=== PATIENT | female | born 1975 | race African-American/Black ===

== ENCOUNTER 2024-11-29 09:30 | Outpatient (CLI) | payer OTHER, SELFPAY ==
--- OUTSIDE RECORDS SUMMARY | 2024-11-29 09:45 | XMS_ITS | Clinical Summary ---
Author Organization [facility] Address [address] [place] [address] Care Team Providers Care Pediatric Occupational Therapist Name Role Phone Gomez Kaufman MD Primary Care Provider [phone] Source Comments [facility],non-owned Affiliates and Associated Physician Practices is amultiple site organization consisting of ambulatory clinics and hospital sitesin [place], [place], [place] and [place]. This disclosure is being madepursuant to the Care Everywhere program and may not contain all information available regarding this patient. Last updated 17.[facility] Allergies No known active allergies Medications * Be aware that medications may not be up to date on this document. Alwaysverify current medications with the patient. amLODIPine (NORVASC) 10 MG tablet Take 10 mg by mouth once daily. Active HYDROCHLOROTHIAZ KENNETH PO Take 5 mg by mouth. Active albuterol HFA (PROVENTIL;YAMILE CONNOR;PROAIR) 108 (90 BASE) MCG/ACT inhaler Inhale 2 Puffs by mouth every 6 hours as needed. Active permethrin (ELIMITE) 5 % cream Apply to entire body once and a second time 1 week later. 60 g 0 09/24/2013 Active Social History Tobacco Use Types Packs/Day Years Used Date Smoking Tobacco: Never Alcohol Use Standard Drinks/Week Comments Yes 0 (1 standard drink = 0.6 oz pur e alcohol) occasional Comments Unknown Sex and Gender Information Value Date Recorded Sex Assigned at Not on file Legal Sex Female 6:28 AM DIRECTOR OF MEDICAL EDUCATION Gender Identity Not on file Sexual Orientation Not on file Last Filed Vital Signs Vital Sign Reading Time Taken Comments Blood Pressure 123/84 08/13/2014 4:52 PM CDT Pulse 90 08/13/2014 4:52 PM CDT Temperature 36.6 C (97.8 F) 08/13/2014 4:52 PM CDT Respiratory Rate 16 08/13/2014 4:52 PM CDT Oxygen Saturation 96% 08/13/2014 4:52 PM CDT Inhaled Oxygen Concentration - - Weight 131.5 kg (290 lb) 08/13/2014 4:52 PM CDT Height 160 cm (5' 3) 10/21/2013 10:12 AM CDT Body Mass Index 51.37 10/21/2013 10:12 AM CDT Plan of Treatment Health Maintenance Due Date Last Done Comments COLOGUARD (AGES 45-75) - COL ON CA SCREENING 1973 COLON MONITORING 1973 COLONOSCOPY - COLON CA SCREENING 1973 CT COLONOGRAPHY - COLON CA SCREENING 1973 Colorectal Cancer Screening 1973 FIT - COLON CA SCREENING 1973 FLEX SIG - COLON CA SCREENING 1973 LIPID TESTING 1973 MAMMOGRAM 1973 HIV SCREENING 1988 HEPATITIS C SCREENING 06/22/1991 DTAP/TDAP/TD VACCINES (1 - Tdap) 1992 HEPATITIS B VACCINE (1 of 3 - 19+ 3-dose series) 1992 PNEUMOCOCCAL VACCINE 50+ (1 of 1 - PCV) 06/27/2023 ZOSTER VACCINE (1 of 2) 06/27/2023 DEPRESSION SCREENING 02/07/2024 COVID-19 VACCINE (1 - 2023-2 5 season) 2024 INFLUENZA VACCINE (#1) 2024 HIB VACCINE Aged Out No longer eligi ble based on patient's age to complete this topic HPV VACCINE Aged Out No longer eligi ble based on patient's age to complete this topic MENINGOCOCCAL (Group B) VACC INE SHARED DECISION-MAKING Aged Out No longer eligibl e based on patient's age to complete this topic MENINGOCOCCAL GROUPS A/C/Y/W VACCINE Aged Out No longer eligible b ased on patient's age to complete this topic Insurance MEDICAID [facility] Care Teams Pediatric Occupational Therapist Relationship Specialty Start Date End Date Gomez Kaufman MD PCP - General Internal Medicine 08/23/13
--- OUTSIDE RECORDS SUMMARY | 2024-11-29 09:45 | XMS_ITS | Clinical Summary ---
Author Organization [facility] Address [address] [place] [address] Care Team Providers Care Supervisor Spring Up Name Role Phone Gomez Kaufman MD Primary Care Provider [phone] Allergies No known active allergies Medications ketorolac (TORADOL) 10 mg tablet Take 1 tablet (10 mg total) by mouth every 6 (six) hours as needed for pain 20 tablet 02/02/2024 Active Encounters Date Type Department Care Team Description 11/18/2024 Immunization [facility] Medicine Occupational Health [facility] Advanced Medicine 5th [address] [place] [address] Katelynn Gonzalez RN 10/29/2024 12:35 PM CDT Lab [facility] [address] [place] [address] [place] [address] from Last 3 Months Immunizations Immunization Administration Dates Next Due Influenza, Trivalent, Cell C ulture-based MDCK, Preservative Free, Antibiotic Free, Intramuscular 11/18/2024 Social History Tobacco Use Types Packs/Day Years Used Date Smoking Tobacco: Never Assessed Personal Safety Answer Date Recorded Have you ever been in or are you currently in a harmful physical or emotional relationship or is someone making you feel afraid or unsafe? Denies 02/02/2024 Comments No Sex and Gender Information Value Date Recorded Sex Assigned at Not on file Legal Sex Female 6:48 PM MAGAZINE HAND Gender Identity Not on file Sexual Orientation Not on file Last Filed Vital Signs Vital Sign Reading Time Taken Comments Blood Pressure 130/78 02/02/2024 9:00 PM MAGAZINE HAND Pulse 70 02/02/2024 9:00 PM MAGAZINE HAND Temperature 37 C (98.6 F) 02/02/2024 3:35 PM MAGAZINE HAND Respiratory Rate 20 02/02/2024 9:00 PM MAGAZINE HAND Oxygen Saturation 93% 02/02/2024 9:00 PM MAGAZINE HAND Inhaled Oxygen Concentration - - Weight 162.8 kg (358 lb 14.5 oz) 02/02/2024 3:35 PM MAGAZINE HAND Height 160 cm (5' 3) 02/02/2024 3:35 PM MAGAZINE HAND Body Mass Index 63.58 02/02/2024 3:35 PM MAGAZINE HAND Plan of Treatment Health Maintenance Due Date Last Done Comments Cervical Cancer Screening 1973 Colon Cancer Screening-Colonoscopy 1973 Depression Screening 1973 Hepatitis C Screening 1973 DTaP/Tdap/Td Vaccine (6 - Tdap) 09/23/1989 09/22/1989, 06/01/1979, 04/10/1975, Additional history exists Hepatitis B Screening 06/27/1991 Regular Well Visit/Exam 18-64 06/27/1991 Zoster Vaccine (1 of 2) 06/27/2023 Breast Cancer Screening-Mammogram 08/04/2023 08/03/2022 Influenza Vaccine Completed 11/18/2024, , 12/27/2021 Pneumococcal vaccine <65 Aged Out No longer eligible based on patient's age to complete this topic Procedures Procedure Name Priority Date/Time Associated Diagnosis Comments SCREENING MAMMOGRAM BILATERAL W LANRE Schedule Routine, Read Routine (OP Routine) 08/03/2022 1:41 PM CDT Screening mammogram, encounter for from Last 3 Months or Most Recently Relevant to Health Maintenance Results * Screening Mammogram Bilateral W Lanre (08/03/2022 1:41 PM CDT) Anatomical Region Laterality Modality Breast Bilateral Mammography Addenda Addendum by Celestina Wright MD on 08/16/2022 4:13 PM CDT ADDENDED REPORT 08/16/2022 at 16:13:38 Addendum: Impression: Finding 1: Mass in the left breast requires additional evaluation. An ultrasound exam is recommended at this time. Finding 2: Mass in the right breast requires additional evaluation. Diagnostic mammogram and possible ultrasound of the right breast are recommended at this time. OVERALL FINAL ASSESSMENT: BI-RADS CATEGORY 0: Incomplete: Need additional imaging evaluation. THIS REPORT HAS BEEN ADDENDED Narrative 08/12/2022 5:28 PM CDT ORIGINAL REPORT Mammogram Technique: Bilateral Digital Breast Tomosynthesis, Bilateral C-view 2D Screening mammogram. Views obtained: bilateral craniocaudal and bilateral mediolateral oblique. Computer Aided Detection was performed. Mammogram Findings: No prior imaging studies are available for comparison. There are scattered areas of fibroglandular density. Finding 1: There is an oval mass measuring 27 millimeters in the middle upper outer quadrant of the left breast. Finding 2: There is an oval mass measuring 8 millimeters in the posterior outer central to slightly upper outer right breast. Impression: Finding 1: Mass in the left breast requires additional evaluation. COMPARISON TO PRIOR FILMS is recommended. Finding 2: Mass in the right breast requires additional evaluation. COMPARISON TO PRIOR FILMS is recommended. OVERALL FINAL ASSESSMENT: BI-RADS CATEGORY 0: Incomplete: Need Additional Imaging Evaluation - Comparison with Prior Studies Procedure Note Celestina Wright MD - 08/16/2022 ORIGINAL REPORT Mammogram Technique: Bilateral Digital Breast Tomosynthesis, Bilateral C-view 2D Screening mammogram. Views obtained: bilateral craniocaudal and bilateral mediolateral oblique. Computer Aided Detection was performed. Mammogram Findings: No prior imaging studies are available for comparison. There are scattered areas of fibroglandular density. Finding 1: There is an oval mass measuring 27 millimeters in the middle upper outer quadrant of the left breast. Finding 2: There is an oval mass measuring 8 millimeters in the posterior outer central to slightly upper outer right breast. Impression: Finding 1: Mass in the left breast requires additional evaluation. COMPARISON TO PRIOR FILMS is recommended. Finding 2: Mass in the right breast requires additional evaluation. COMPARISON TO PRIOR FILMS is recommended. OVERALL FINAL ASSESSMENT: BI-RADS CATEGORY 0: Incomplete: Need Additional Imaging Evaluation -Comparison with Prior Studies us Self Screening Mammogram IMG MAMMO PROCEDURES Ed ited Result - Final from Last 3 Months or Most Recently Relevant to Health Maintenance Insurance [facility] Member Subscriber Plan / Payer ( fective 2024-Present) Name:Darrell Colon Relation to Subscriber:Self Name:MikeRaniDarrell valdez Payer ID:[id number] (NAIC) Type:[facility] HMO/PPO Address: [place] [phone] Care Teams Supervisor Spring Up Relationship Specialty Start Date End Date Gomez Kaufman MD PCP - General 10/16/18
--- OUTSIDE RECORDS SUMMARY | 2024-11-29 09:45 | XMS_ITS | Clinical Summary ---
Author Organization [facility] Care Team Providers Care Direct Support Professional Name Role Phone Unavailable Primary Care Provider Unavailabl e Social History Tobacco Use Types Packs/Day Years Used Date Smoking Tobacco: Never Assessed Comments Unknown Sex and Gender Information Value Date Recorded Sex Assigned at Not on file Legal Sex Female 8:18 AM CDT Gender Identity Not on file Sexual Orientation Not on file Plan of Treatment Health Maintenance Due Date Last Done Comments Hepatitis C Virus (HCV) Screening 1973 TdaP Immunization 1973 Hepatitis B Immunization (1 of 3 - 19+ 3-dose series) 1992 Pap Smear 1994 Cervical Cancer Screening (CCS) 06/27/2003 HPV/Cotest 06/27/2003 Cologuard 2018 Colonoscopy 2018 Colorectal Cancer Screening 2018 Immunochemical Fecal Occult Blood 2018 Pneumococcal Immunization (50+ years) (1 of 1 - PCV) 06/27/2023 Zoster Immunization (1 of 2) 06/27/2023 Influenza Immunization (#1) 2024 SARS-COV-2 Immunization ( season) 2024 Respiratory Syncytial Virus (RSV) Immunization (Adult) (1 - 1-dose 75+ series) 2048 DTaP/Tdap/Td Immunization Discontinued 1989, 06/01/1979, 04/10/1975, Additional history exists Human Papillomavirus (HPV) Immunization Aged Out No longer eligible based on patient's age to complete this topic Meningococcal Immunization (ACWY) Aged Out No longer eligible based on patient's age to complete this topic Rotavirus Immunization Aged Out No lo nger eligible based on patient's age to complete this topic
--- NOTE | 2024-12-13 12:54 | P.SLEEP_ITS ---
Sleep Study Date of Study: 11/29/24 Ordering Provider: William Szymanski, Interpreting Physician: Abby Quigley MD Sleep Study Type: Polysomnogram Height: 1.6 m Weight: 158.757 kg Body Mass Index: 61.9 Neck Circumference (inches): 16 [place]: 11 Reason for Sleep Study Hypersomnolence, witnessed apneas Sleep History Darrell Colon is a 49-year-old woman who dozes off during the day. She occasionally wakes at night with heartburn, belching or coughing.??She occasionally snores, and frequently snores loudly enough that others complain. She frequently has trouble sleeping when she has a cold. She rarely wakes up gasping for breath during the night. She rarely has breathing problems at night reported to her by others, however she has been told that she stops breathing at night. She rarely sweats excessively at night. She rarely notices her heart pounding or beating irregularly during the night. She frequently falls asleep during the day. She frequently falls asleep involuntarily, never falls asleep while driving. She rarely experiences loss of muscle tone with strong emotion. She rarely feels paralyzed on waking or falling asleep. She occasionally experiences vivid dreams upon waking or falling asleep. She rarely feels afraid of going to sleep. She rarely has nightmares. She occasionally recalls her dreams. She occasionally has thoughts racing through her mind. She occasionally feels sad or depressed. She frequently feels anxiety. She rarely notices parts of her body jerk. She rarely kicks during the night. She frequently feels crawling or aching feelings in her legs. She rarely feels leg pain at night. She never has morning jaw pain, never grinds her teeth at night. she rarely is awakened by pain during the night. She frequently wakes up feeling stiff in the morning, frequently wakes feeling sore or achy in the morning. She frequently awakens with pain in her neck, spine, or joints. Normal bedtime is 9:00 p.m., taking a long time to fall asleep, typically waking 3 times during the night for about an hour. While awake, she goes to the bathroom then watches television. Her normal wake time is 5:00 a.m.. On weekends, bedtime is also 9:00 p.m. however her wake time is 11:00 a.m. She reports getting an average of 5 hours of sleep most nights. she takes naps in the afternoon or evening however short nap lasting 10-15 minutes is not refreshi ng. She is usually drowsy on waking. She feels better in the afternoon compared to other times of day. Habits:??Tobacco: never smoker Caffeine: none Alcohol: none Recreational substances: none [facility] Past Medical History Medical History (Updated 12/18/24 @ 15:42 by Abby Quigley MD) T2DM (type 2 diabetes mellitus) Hyperlipidemia Heartburn Arthritis Depression Asthma Hypertension Surgical History Surgical History (Updated 12/13/24 @ 13:44 by Abby Quigley MD) History of 2 sections Family History Family History (Updated 12/13/24 @ 13:45 by Abby Quigley MD) Mother Obstructive sleep apnea CHF (congestive heart failure) Sibling Hypertension Social History Social History (Updated 12/13/24 @ 13:46 by Abby Quigley MD) Social History: She works as a corporate secretary. Smoking status: Never smoker Alcohol intake: never Medications Medications: amlodipine 10 mg daily atorvastatin 40 mg a day Symbicort 160/4.52 puffs b.i.d. celecoxib 200 mg daily vitamin D2 1250 mcg/ 50,000 units every 15 days FeroSul 325 mg (65 mg iron) one daily omeprazole 40 mg delayed release daily triamterene 37.5 mg-hydrochlorothiazide 25 mg daily Sleep Procedure A full night polysomnogram using the TrewCap multi-channel system recorded the standard physiologic parameters including EEG, EOG, submentalis EMG, anterior tibialis EMG, EKG, body position, nasal and oral airflow using nasal pressure sensor and thermistor. Respiratory parameters of chest and abdominal movements were recorded with Respiratory Inductance Plethysmography belts. Oxygen saturation was recorded by pulse oximetry. Video monitoring was also performed. Sleep stages, periodic limb movements, and EEG arousals were scored in 30 second epochs according to the criteria of the AASM Scoring Manual. The Apnea-Hypopnea Index was calculated using CMS guidelines for definition of hypopnea while scoring respiratory events. No sleep aid was taken at the beginning of the study. Sleep Architecture The total recording time was 464.2 minutes. The total sleep time was 405.5 minutes. Sleep latency was 42.2 minutes. REM latency was 59.0 minutes. Sleep efficiency was 87.3%. The patient had 22 awakenings for an awakening index of 3.3. Wake after sleep onset time was 16.5 minutes. The patient spent 12.5 minutes, 3.1% of total sleep time in Stage N1. The patient spent 237.0 minutes, 58.4% in Stage N2. The patient spent 75.0 minutes, 18.5% in Stage N3. The patient spent 81.0 minutes, 20.0% in Stage REM sleep. Respiratory Analysis The patient had 110 hypopneas, 39 obstructive apneas, 8 mixed apneas, and 110 central apneas for an overall Apnea Hypopnea Index of 39.5. The REM Apnea Hypopnea Index was 101.5. The NREM Apnea Hypopnea Index was 24.0. The patient had a Central Apnea Hypopnea Index of 16.3. There were no Respiratory Effort Related Arousals. The Respiratory Disturbance Index is 47.8 events per hour. There was evidence of Rayshawn-Nuñez Respirations. Arousals There were 169 total arousals for an arousal index of 25.0. There were 41 spontaneous arousals for an index of 6.1. There were 110 arousals due to respiratory events for an index of 16.3. There were no arousals due to periodic limb movements. There were 16 arousals due to isolated limb movements for an index of 2.4. Periodic Limb Movements The patient had 18 isolated limb movements with an index of 2.7. The patient had no periodic limb movements. Patient had a total of 18 limb movements with a total limb movement index of 2.7. Oximetry Data The patient had an average oxygen saturation of 90.9% in sleep with a minimum oxygen saturation of 67% and a maximum oxygen saturation of 97%. The patient had 200 oxygen desaturations that were 4% or greater resulting in an Oxygen Desaturation Index of 29.6. The patient spent 43.5 minutes, 9.4% of total sleep time with an oxygen saturation below 88%. Snoring Profile Snoring was mild to moderate. Cardiac Profile The EKG showed normal sinus rhythm, average pulse rate of 70.3 bpm with a minimum pulse of rate of 45 bpm and a maximum pulse rate of 98 bpm. No arrhythmias noted. EEG Profile Unremarkable, no evidence of seizures. Assessment and Plan Assessment and Plan (1) Obstructive sleep apnea: Code(s): G47.33 - Obstructive sleep apnea (adult) (pediatric) Status: Acute Assessment and Plan: This basic nocturnal polysomnogram on 11/29/2024 shows severe obstructive sleep apnea with an overall apnea-hypopnea index of 39.5, with approximately half of the events being central. Patient desaturated to 67% and spent 43.5 minutes below 88% saturation, 9.4% of the night along with moderate to loud snoring. This patient is not a candidate for auto PAP which can make central apnea worse. She needs to have a dedicated full night CPAP titration in a sleep lab with a sleep aid available, to use if needed, to get sleep and stay asleep. Patient should not nap on the day of the study. BMI is 62. Weight management is advised. Clinical data suggests that weight loss of 10% can reduce the severity of respiratory events and snoring and improve AHI by as much as 25%. (2) Central sleep apnea: Code(s): G47.31 - Primary central sleep apnea Status: Acute Assessment and Plan: The central apnea-hypopnea index is 16.3, slightly less than the total AHI. This is consistent with moderate central sleep apnea and the patient had Rayshawn- Nuñez respirations during the night. Due to the elevated number of central apneas, this patient needs to have an echocardiogram to evaluate for decreased left ventricular function. Central sleep apnea can be seen in patients with stroke, decreased LV function, opioid and alcohol use. Central apnea can also be seen independent of any specific medical problem. (3) Restless leg syndrome: Code(s): G25.81 - Restless legs syndrome Status: Acute Assessment and Plan: Sleep history includes frequent crawling or aching feelings in her legs. This is suggestive of restless legs syndrome. If these occur more than 2 times per week and impair her ability to fall asleep, this would be consistent with restless legs syndrome. Ferritin level is indicated to exclude iron deficiency anemia as a contributing factor. Ferritin should be 75 ng/mL or greater. If ferritin is below this, iron supplementation should be given to achieve ferritin of 75 ng/mL. There are nonpharmacologic methods to treat limb movements including daily exercise, stretching calf muscles before bed, avoiding excessive amounts of caffeine and alcohol, vitamin B supplementation, magnesium lotion ma ssaged into legs before bed, and use of a weighted blanket. Pharmacologic therapy is very effective for restless legs syndrome and limb movements during sleep and may include [id number] voltage-gated calcium channel ligands such as gabapentin which is preferable to dopaminergic agents which can have augmentation. Data The data obtained during this sleep study is adequate for interpretation. Certification This sleep study has been reviewed by a board certified sleep medicine physician.
[2024-12-13 14:27] VITALS: BMI 61.9
== END 2024-11-30 06:19 | disposition home or self-care (01) ==
PROVIDERS: Visit Provider Internal Medicine Pulmonary Disease
DX: G47.33 Obstructive sleep apnea (adult) (pediatric) (principal); G47.31 Primary central sleep apnea; G47.61 Periodic limb movement disorder; R06.89 Other abnormalities of breathing; I10 Essential (primary) hypertension; K21.9 Gastro-esophageal reflux disease without esophagitis
CPT/HCPCS: 95810